=== PATIENT | male | born 1990 | race Caucasian/White ===

== ENCOUNTER 2022-12-26 22:15 | Emergency (ER) | payer SELFPAY ==
[~2022-12-26] VITALS: Ht 165.1 cm; Wt 80.3 kg
--- NOTE | 2022-12-26 22:15 | NUR ---
ARRIVAL. 2213 PT ARRIVED VIA EMS C/O ANXIETY DURING TRAVEL BACK TO [facility] BBEING OUT OF STATE. PT REPORTS HE RANOUT OF HIS ZOLOFT AND TRAZODONE.
[2022-12-26 22:24] VITALS: BP 166/112
--- NOTE | 2022-12-26 22:37 | NUR ---
DR GARVIN IN TO SEE PT
--- NOTE | 2022-12-26 22:58 | PCM.EKG ---
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
[2022-12-26] MEDS ORDERED: ATIVAN ONE (23:04)
[2022-12-26] MEDS: ATIVAN IM STA (23:09)
[2022-12-26] MEDS ORDERED: OFIRMEV 100 ML IV ONE (23:44)
--- NOTE | 2022-12-27 00:26 | ER.PDOC ---
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 Patient states that he is supposed to be on Zoloft and trazodone but has not been on those medications for about a week he states that while he was driving started having panic attack feeling his chest race as an palpitations no real shortness of breath just her panic and tingling all over was initially checked out by EMS and decided he did not want to be transferred and refused but then started driving again and started having symptoms again so decided to come in he states that he does also have a headache but denies any other symptoms or concerns at this time. Allergies: Coded Allergies: cefaclor (Verified Allergy, Intermediate, hives, 12/26/22) Penicillins (Verified Allergy, Unknown, Hives, 12/26/22) Past Medical History Medical History: other Surgical History: no surgical history Family History Significant Family History: no pertinent family hx Social History Smoking: greater than 1 pack/day Alcohol Use: other (Sober for 9 weeks) Drug Use: none Reviewed Nursing Reviewed: Vital Signs, Abn. Noted, Nursing Assessment Review of Systems Constitutional: no symptoms reported EENTM: no symptoms reported Respiratory: no symptoms reported Cardiovascular: palpitations Gastrointestinal: no symptoms reported Genitourinary: no symptoms reported Musculoskeletal: no symptoms reported Skin: no symptoms reported Psychiatric/Neurological: anxiety Hematologic/Lymphatic: no symptoms reported Immunological/Allergic: no symptoms reported Physical Exam General Appearance: Anxious EENT: eyes nml inspection, nml ENT inspection Neck: Non-Tender, Full Range of Motion Respiratory: chest non-tender, lungs clear CVS: reg rate & rhythm Gastrointestinal: Normal Bowel Sounds, Non Tender, Soft Back: Normal Inspection, No CVA Tenderness Extremities: Normal Range of Motion, Non-Tender 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 NML as Tested, No Motor/Sensory Deficits, Alert Skin: Normal Color Lymphatic: No Adenopathy Results/Orders Results/Orders Orders - BAHMAN GARVIN MD EKG (12/26/22 22:41) Lorazepam (Ativan) (12/26/22 23:00) Lorazepam (Ativan) (12/26/22 23:04) Acetaminophen (Ofirmev) (12/26/22 23:44) Lorazepam (Ativan) (12/27/22 00:18) Vital Signs Date Time Temp Pulse Resp B/P (MAP) Pulse Ox O2 Delivery O2 Flow Rate FiO2 12/26/22 22:24 98.6 108 20 12/26/22 22:24 98.6 108 20 97 12/26/22 22:24 98.6 108 20 166/112 (130) 97 Room Air* 0 21 Administered Medications Medications (Trade) Dose Ordered Sig/Aleksandr Route PRN Reason Start Time Stop Time Status Last Admin Dose Admin Lorazepam (Ativan) 2 mg OT STAT IM 12/26/22 23:00 12/26/22 23:01 DC 12/26/22 23:09 2 MG Progress Progress Patient here with a panic attack and has been off his psychiatric medications we will go ahead and giveI am Ativan and obtain an EKG just continue to monitor. Patient's EKG per my independent her interpretation shows a heart rate of 107 sinus tachycardia no STEMI QTc of 450 you find more information on the computer readout. [id number] states that he started to feel much better still little tachycardic so we will go ahead and give him more Ativan and will discharge him. He is going to walk over to the [facility] in next door and our security team is going to watch him to make sure that he gets there safely. He voiced understanding when to follow-up and when to return to the ER. ER DEPART Departure Time of Disposition: 00:25 Disposition: 01 HOME / SELF CARE / HOMELESS Impression: Primary Impression: Panic attack Condition: Improved Patient Instructions: Anxiety and Panic Attacks Referrals: PCP,UNKNOWN (PCP) PRIMARY CARE PROVIDER Additional Instructions: Follow-up with your primary care provider within the next week. If you have any new persistent or worsening symptoms or concerns seek medical attention. Duration or Time Spent with Pa: 30 BAHMAN GARVIN MD Dec 27, 2022 00:26
[2022-12-27 00:33] VITALS: BP 155/99
[2022-12-27] MEDS ORDERED: ATIVAN ONE (00:36)
[2022-12-27] MEDS: ATIVAN IM STA (00:39)
== END 2022-12-27 00:42 | disposition home or self-care (01) ==
LOC: EDBD 22:15 → ER 22:15
DX: F41.0 Panic disorder [episodic paroxysmal anxiety] (principal); F32.A Depression, unspecified; F17.210 Nicotine dependence, cigarettes, uncomplicated; Z88.0 Allergy status to penicillin; Z88.1 Allergy status to other antibiotic agents
CPT/HCPCS: 99284; 96372; 93005; J2060 ×2; J0131